=== PATIENT | male | born 1950 | race Caucasian/White ===

== ENCOUNTER → 2025-08-22 | Outpatient (REF) | payer MEDICARE, OTHER ==
[2025-08-22 14:35] LABS: CHOLESTEROL LEVEL 186.0 MG/DL (<200); CHOLESTEROL RISK RATIO 3.0 (<5); LDL CHOLESTEROL 104.1 MG/DL (<100); NON-HDL-C 124.1 MG/DL; TRIGLYCERIDES LEVEL 100.0 MG/DL (<150)
[2025-08-22 14:38] LABS: VITAMIN B12 LEVEL 426.0 PG/ML (211-911)
[2025-08-22 14:43] LABS: ESTIMATED AVERAGE GLUCOSE 120.0 MG/DL (60-110)
== END ==
LOC: M LABDRWAD 13:16
DX: E78.5 Hyperlipidemia, unspecified (principal); R73.01 Impaired fasting glucose; C61 Malignant neoplasm of prostate; D51.0 Vitamin B12 deficiency anemia due to intrinsic factor deficiency

== ENCOUNTER → 2025-08-22 | Outpatient (REF) | payer MEDICARE, OTHER ==
[2025-08-22 14:34] LABS: BASO # 0.0 10^3/uL (0.0-0.2); BASO % 1.0 % (0.0-1.0); EOS # 0.1 10^3/uL (0.0-0.5); EOS % 3.1 % (0.0-3.0); LYMPH # 1.6 10^3/uL (1.5-5.0); LYMPH % 37.8 % (24.0-44.0); MONO # 0.5 10^3/uL (0.0-0.8); MONO % 11.3 % (2.0-8.0); NEUTROPHILS # 1.9 10^3/uL (1.5-8.5); NEUTROPHILS % 46.6 % (36.0-66.0); PLATELET COUNT, AUTOMATED 157 10^3/uL (150-450)
[2025-08-22 14:37] LABS: ALT/SGPT 26.0 U/L (7.0-40); AST/SGOT 25.0 U/L (<34); CALCIUM LEVEL 9.4 MG/DL (8.3-10.6); CARBON DIOXIDE LEVEL 31.0 MMOL/L (20-31); CHLORIDE LEVEL 104.0 MMOL/L (98-107); CREATININE FOR GFR 1.07 MG/DL (0.70-1.30); GLOMERULAR FILTRATION RATE 71.5 (>42); POTASSIUM SERUM 4.2 MMOL/L (3.5-5.1); PROSTATIC SPECIFIC AG MONITOR 0.04 NG/ML (< 4.00); SODIUM LEVEL 144.0 MMOL/L (136-145)
== END ==
LOC: M LABDRWAD 13:18
PROVIDERS: ATTEND Registered Nurse
DX: C61 Malignant neoplasm of prostate (principal); E78.5 Hyperlipidemia, unspecified; R73.01 Impaired fasting glucose; D51.0 Vitamin B12 deficiency anemia due to intrinsic factor deficiency